=== PATIENT | male | born 1975 | race American Indian/Alaskan Native ===

== ENCOUNTER 2016-09-21 12:56 | Emergency (ER) | payer MEDICAID ==
[2016-09-21 13:12] VITALS: BP 158/100; PULSE 96; RESP 20; TEMP 98; O2SAT 99
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
== END 2016-09-21 13:39 | disposition home or self-care (01) ==
LOC: C.ER 12:56
DX: G89.29 Other chronic pain (principal); M79.672 Pain in left foot; R68.84 Jaw pain

== ENCOUNTER 2016-09-24 16:49 | Emergency (ER) | payer MEDICAID ==
--- NOTE | 2016-09-24 16:59 | C.PDOC ---
History Of Present Illness 40 y/o male presents to ED with c/o dental pain and left foot pain. Patient states he was given Naproxen at last ER visit (3 days ago, similar complaints) which he has taken w/o relief. Denies any trauma or injury. Chief Complaint (Nursing): Dental Pain History Per: Patient History/Exam Limitations: no limitations Onset/Duration Of Symptoms: Days Current Symptoms Are (Timing): Still Present Quality: Positive for: "Pain" Recent travel outside of the [place]: No Past Medical History Reviewed: Historical Data, Nursing Documentation, Vital Signs Vital Signs: Last Vital Signs Temp 98.3 F 09/24/16 17:03 Pulse 103 H 09/24/16 17:03 Resp 18 09/24/16 17:53 BP 141/81 09/24/16 17:03 Pulse Ox 98 09/24/16 17:03 - Medical History PMH: HTN Family History: States: Unknown Family Hx - Social History Hx Tobacco Use: No Hx Alcohol Use: No Hx Substance Use: No - Immunization History Hx Tetanus Toxoid Vaccination: No Hx Influenza Vaccination: No Hx Pneumococcal Vaccination: No Review Of Systems Except As Marked, All Systems Reviewed And Found Negative. Constitutional: Negative for: Fever, Chills ENT: Positive for: Mouth Pain (dental) Cardiovascular: Negative for: Chest Pain Respiratory: Negative for: Cough, Shortness of Breath, Wheezing Gastrointestinal: Negative for: Nausea, Vomiting, Abdominal Pain Musculoskeletal: Positive for: Foot Pain (Left) Skin: Negative for: Rash Neurological: Negative for: Headache, Dizziness Physical Exam - Physical Exam Appears: Non-toxic, No Acute Distress Skin: Normal Color, Warm, Dry Head: Atraumatic, Normacephalic Eye(s): bilateral: Normal Inspection, PERRL, EOMI Ear(s): Bilateral: Normal Nose: Normal Oral Mucosa: Moist Teeth: Normal Dentition Throat: Normal, No Erythema, No Exudate Neck: Normal ROM, Supple Chest: Symmetrical Cardiovascular: Rhythm Regular Respiratory: Normal Breath Sounds, No Rales, No Rhonchi, No Wheezing Gastrointestinal/Abdominal: Soft, No Tenderness Back: Normal Inspection Extremity: Normal ROM, Capillary Refill (< 2 sec.) Neurological/Psych: Oriented x3, Normal Speech, Normal Cognition ED Course And Treatment O2 Sat by Pulse Oximetry: 98 (RA) Pulse Ox Interpretation: Normal Progress Note: Treated with Percocet and Pen-Vee K. On reassessment, patient is resting comfortably, and is in no acute distress. Patient reports improvement of pain. Patient instructed to follow up with podiatry/clinic within 1-2 days. Disposition - Disposition [facility] Matias Odom DPM [Staff Provider] - Disposition: HOME/ ROUTINE Disposition Time: 17:33 Condition: STABLE Additional Instructions: Follow up with Dentist and [facility] within 2-3 days. Return to ED if feel worse. Prescriptions: Penicillin VK [Pen-Vee K] 500 mg PO Q6 #28 tab traMADol [Ultram] 50 mg PO Q6 #20 tab Instructions: Toothache (ED), Leg Pain (ED) Forms: [facility] (Monegasque) - Clinical Impression Clinical Impression: Pain, dental, Chronic pain in left foot - PA / INSTRUCTIONAL TECHNOLOGY COORDINATOR / Resident Statement MD/DO has reviewed & agrees with the documentation as recorded. - Scribe Statement The provider has reviewed the documentation as recorded by the Gus RODRIGUEZ All medical record entries made by the Gus were at my direction and personally dictated by me. I have reviewed the chart and agree that the record accurately reflects my personal performance of the history, physical exam, medical decision making, and the department course for this patient. I have also personally directed, reviewed, and agree with the discharge instructions and disposition.
[2016-09-24 17:03] VITALS: BMI 25.8
[2016-09-24 17:08] VITALS: BP 141/81; PULSE 103; RESP 18; TEMP 98.3; O2SAT 98
[2016-09-24] MEDS ORDERED: Oxycodone/Acetaminophen 5/325 mg Tab PO STA (17:33)
[2016-09-24] MEDS ORDERED: Oxycodone/Acetaminophen 5/325 mg Tab ONE (17:43)
== END 2016-09-24 17:54 | disposition home or self-care (01) ==
LOC: C.ER 16:49
DX: K08.89 Other specified disorders of teeth and supporting structures (principal); G89.29 Other chronic pain; M79.672 Pain in left foot

== ENCOUNTER 2016-10-02 20:36 | Emergency (ER) | payer MEDICAID ==
[2016-10-02 20:36] VITALS: BMI 25.8
[2016-10-02 21:12] VITALS: TEMP 98.4
--- NOTE | 2016-10-02 22:04 | C.PDOC ---
History Of Present Illness Patient is brought to the ED by EMS for evaluation of public alcohol intoxication for an unknown duration. Patient was found wandering around [facility] and admits to drinking earlier today. Patient denies suicidal/ homicidal ideation and has no physical complaints at this time. Time Seen by Provider: 10/02/16 22:04 Chief Complaint (Nursing): Substance Abuse History Per: Patient, EMS History/Exam Limitations: intoxication Onset/Duration Of Symptoms: Unknown Current Symptoms Are (Timing): Still Present Suicide/Self Injury Attempted (Context): None Modifying Factor(s): Alcohol Associated Symptoms: denies: Suicidal Thoughts, Suicidal Plan Involuntary Hold By: None Recent travel outside of the [place]: No Additional History Per: Patient, EMS Past Medical History Reviewed: Historical Data, Nursing Documentation, Vital Signs Vital Signs: Last Vital Signs Temp 98.4 F 10/02/16 20:43 Pulse 96 H 10/02/16 20:43 Resp 20 10/02/16 20:43 BP 160/113 H 10/02/16 20:43 Pulse Ox 96 10/02/16 22:58 - Medical History PMH: HTN Surgical History: No Surg Hx Family History: States: Unknown Family Hx - Social History Hx Tobacco Use: No Hx Alcohol Use: Yes Hx Substance Use: Yes - Immunization History Hx Tetanus Toxoid Vaccination: No Hx Influenza Vaccination: No Hx Pneumococcal Vaccination: No Review Of Systems Constitutional: Positive for: Other (+ETOH intoxication ) Cardiovascular: Negative for: Chest Pain, Palpitations Respiratory: Negative for: Cough, Shortness of Breath Gastrointestinal: Negative for: Nausea, Vomiting, Abdominal Pain Skin: Negative for: Rash, Lesions, Jaundice, Bruising Neurological: Negative for: Weakness, Numbness Psych: Negative for: Suicidal ideation Physical Exam - Physical Exam Appears: No Acute Distress, Other (visibly intoxicated ) Skin: Warm, Dry Head: Normacephalic Eye(s): bilateral: Normal Inspection Oral Mucosa: Moist, Other (alcohol on breath ) Neck: Supple Chest: Symmetrical, No Deformity, No Tenderness Cardiovascular: Rhythm Regular, No Murmur Respiratory: No Rales, No Rhonchi, No Wheezing Extremity: Normal ROM, Capillary Refill (less than 2 seconds ) Neurological/Psych: Other (arousable to touch and verbal stimuli ) Gait: Unsteady ED Course And Treatment O2 Sat by Pulse Oximetry: 96 (on RA) Pulse Ox Interpretation: Normal Progress Note: Patient is awaiting pickup from family member. Disposition Counseled Patient/Family Regarding: Studies Performed, Diagnosis, Need For Followup - Disposition Referrals: [facility] [Outside] Disposition: HOME/ ROUTINE Disposition Time: 22:04 Condition: FAIR Instructions: Alcohol Intoxication (DC) Forms: [employer] (Polish) - Clinical Impression Clinical Impression: Alcohol intoxication - Scribe Statement The provider has reviewed the documentation as recorded by the Scribe (Dilcia Smith) Provider Attestation: All medical record entries made by the Scribe were at my direction and personally dictated by me. I have reviewed the chart and agree that the record accurately reflects my personal performance of the history, physical exam, medical decision making, and the department course for this patient. I have also personally directed, reviewed, and agree with the discharge instructions and disposition.
[2016-10-02 23:18] VITALS: BP 159/94; PULSE 86; RESP 16; O2SAT 97
== END 2016-10-02 23:18 | disposition home or self-care (01) ==
LOC: C.ER 20:36
DX: F10.120 Alcohol abuse with intoxication, uncomplicated (principal); Y90.9 Presence of alcohol in blood, level not specified

== ENCOUNTER 2016-11-16 01:04 | Emergency (ER) | payer MEDICAID ==
[2016-11-16 01:04] VITALS: BMI 25.8
[2016-11-16 01:16] VITALS: TEMP 98.1
[2016-11-16] MEDS ORDERED: Oxycodone/Acetaminophen 5/325 mg Tab PO STA (01:40)
[2016-11-16] MEDS ORDERED: Oxycodone/Acetaminophen 5/325 mg Tab ONE (01:42)
--- NOTE | 2016-11-16 02:03 | C.PDOC ---
History Of Present Illness 41 year old male who presents to the ER with a complaint of dental pain to the right upper and lower teeth. Patient states the pain has spread and he is unsure which teeth exactly hurt. Denies recent injury or discharge. Time Seen by Provider: 11/16/16 01:32 Chief Complaint (Nursing): Dental Pain History Per: Patient History/Exam Limitations: no limitations Onset/Duration Of Symptoms: Days Current Symptoms Are (Timing): Still Present Quality: Positive for: Aching Recent travel outside of the [place]: No Past Medical History Reviewed: Historical Data, Nursing Documentation, Vital Signs Vital Signs: Last Vital Signs Temp 98.1 F 11/16/16 01:12 Pulse 84 11/16/16 02:33 Resp 19 11/16/16 02:33 BP 127/81 11/16/16 02:33 Pulse Ox 99 11/16/16 02:33 - Medical History PMH: HTN Surgical History: No Surg Hx Family History: States: Unknown Family Hx - Social History Hx Tobacco Use: No Hx Alcohol Use: Yes Hx Substance Use: Yes - Immunization History Hx Tetanus Toxoid Vaccination: No Hx Influenza Vaccination: No Hx Pneumococcal Vaccination: No Review Of Systems ENT: Positive for: Mouth Pain. Negative for: Mouth Swelling, Throat Pain, Throat Swelling Musculoskeletal: Negative for: Neck Pain Physical Exam - Physical Exam Appears: Non-toxic, No Acute Distress Skin: Normal Color, Warm, Dry Head: Atraumatic, Normacephalic Oral Mucosa: Moist Tongue: Normal Appearing Lips: Normal Appearing Teeth: Other (poor dentition with multiple cavities) Gingiva: Normal Appearing, No Swelling Throat: Normal, No Erythema Neck: Normal, Supple Neurological/Psych: Oriented x3, Normal Speech, Normal Cognition ED Course And Treatment O2 Sat by Pulse Oximetry: 97 (Room air) Pulse Ox Interpretation: Normal Progress Note: Penicillin and percocet administered. On reevaluation, patient states pain has improved, will discharge with instructions to follow up with dentist. Disposition - Disposition Disposition: HOME/ ROUTINE Disposition Time: 02:03 Condition: STABLE Additional Instructions: Follow up with Dentist within 1-2 days. Return to ED if feel worse. Prescriptions: Ibuprofen [Motrin Tab] 600 mg PO Q8 #30 tab Penicillin VK [Penicillin VK Tab] 500 mg PO Q6H #40 tab traMADol [Ultram] 50 mg PO Q6 #20 tab Instructions: Toothache (ED) Forms: [facility] (Kosovan) - Clinical Impression Clinical Impression: Toothache - Scribe Statement The provider has reviewed the documentation as recorded by the Scribe Rodolfo Vargas All medical record entries made by the Scribe were at my direction and personally dictated by me. I have reviewed the chart and agree that the record accurately reflects my personal performance of the history, physical exam, medical decision making, and the department course for this patient. I have also personally directed, reviewed, and agree with the discharge instructions and disposition.
[2016-11-16 02:35] VITALS: BP 127/81; PULSE 84; RESP 19
[2016-11-16 03:51] VITALS: O2SAT 97
== END 2016-11-16 02:35 | disposition home or self-care (01) ==
LOC: C.ER 01:04
DX: K08.89 Other specified disorders of teeth and supporting structures (principal)